=== PATIENT | female | born 1990 | race Caucasian/White ===

== ENCOUNTER 2017-01-18 07:32 | Emergency (ER) | payer SELFPAY ==
[~2017-01-18] VITALS: Ht 165.1 cm; Wt 63.5 kg
[2017-01-18] MEDS ORDERED: KETOROLAC TROMETHAMINE 15 MG INJ IV ONE (08:00)
[2017-01-18] MEDS ORDERED: METOCLOPRAMIDE HCL 10 MG/2 ML VIAL IV ONE (08:00)
[2017-01-18] MEDS ORDERED: IV NORMAL SALINE 1000 ML BAG IV ONE (08:00)
[2017-01-18] MEDS ORDERED: METOCLOPRAMIDE HCL 10 MG/2 ML VIAL ONE (08:16)
[2017-01-18] MEDS ORDERED: KETOROLAC TROMETHAMINE 15 MG INJ ONE (08:16)
--- NOTE | 2017-01-18 08:44 | NUR ---
IV PLACED/BLOOD DRAWN/BLOOD CX DRAWN/ MEDS ADMIN/1L 0.9NS BOLUS INFUSING/PT POSITIONED FOR COMFORT. PT ATTEMPTED TO GIVE URINE, PT UNSUCCESSFUL.
--- NOTE | 2017-01-18 09:30 | NUR ---
1L INFUSED, URTINE SENTN TO LAB. PT POSITIONED FOR COMFORT.
--- NOTE | 2017-01-18 11:46 | NUR ---
Patient discharged to home in stable conditon. Written and verbal after care instructions given. Patient verbalizes understanding of instructions.
[2017-01-18 11:47] VITALS: PULSE 89; RESP 18; O2SAT 99
== END 2017-01-18 11:49 | disposition home or self-care (01) ==
LOC: ER 07:32
DX: A09 Infectious gastroenteritis and colitis, unspecified (principal); J45.909 Unspecified asthma, uncomplicated; Z88.8 Allergy status to other drugs, medicaments and biological substances
CPT/HCPCS: 36415; 80048; 80076; 81001; 83605; 83690; 84484; 84703; 85025; 87040 ×2; 96361; 96374; 96375; 99285; A4663; J1885; J2765; J7030